=== PATIENT | female | born 1980 | race Caucasian/White ===

== ENCOUNTER 2018-10-30 20:57 | Emergency (ER) | payer MEDICAID ==
[~2018-10-30] VITALS: Ht 165.1 cm; Wt 57.2 kg
[2018-10-30 21:18] VITALS: BP 116/72
--- NOTE | 2018-10-30 21:29 | Emergency Room Report ---
History of Present Illness General Chief Complaint: Earache Source: Patient Present Illness HPI 38-year-old female presents with right earache x3 days, no fever no chills, patient endorses congestion, no aggravating relieving factors, severity is mild and constant. Allergies: Coded Allergies: No Known Allergies (Unverified , 10/30/18) Patient History Past Medical History: see triage record Now: No Reviewed Nursing Documentation: PMH: Agreed; PSxH: Agreed Nursing Documentation-PMH Past Medical History: No Stated History Review of Systems All Other Systems: negative except mentioned in HPI Physical Exam Vital Signs Date Time Temp Pulse Resp B/P (MAP) Pulse Ox O2 Delivery O2 Flow Rate FiO2 10/30/18 21:16 98.4 69 18 116/72 (87) 97 Room Air Sp02 EP Interpretation: reviewed, normal General Appearance: well appearing, no apparent distress, alert Head: normocephalic, atraumatic Eyes: bilateral eye PERRL, bilateral eye EOMI ENT: uvula midline, moist mucus membranes, nasal congestion, other - Right ear effusion, left ear normal Neck: supple, thyroid normal, supple/symm/no masses Respiratory: lungs clear, no respiratory distress, no retraction, no accessory muscle use Cardiovascular #1: normal peripheral pulses, regular rate, rhythm, no edema, no gallop, no murmur Gastrointestinal: non tender, soft, no guarding, no rebound Musculoskeletal: normal inspection Neurologic: alert, oriented x3 Psychiatric: mood/affect normal Skin: no rash, warm/dry Medical Decision Making Diagnostic Impression: Primary Impression: Otitis media Qualified Codes: H66.001 - Acute suppurative otitis media without spontaneous rupture of ear drum, right ear ER Course Patient with right ear infection, will provide patient with antibiotic disposition home with return precautions Last Vital Signs Date Time Temp Pulse Resp B/P (MAP) Pulse Ox O2 Delivery O2 Flow Rate FiO2 10/30/18 21:16 98.4 69 18 116/72 (87) 97 Room Air Disposition: HOME, SELF-CARE Condition: Stable Scripts Amoxicillin (AMOXICILLIN) 875 Mg Tablet 875 MG PO Q12H for 7 Days, #14 TAB 0 Refills Prov: Michael Stinson MD 10/30/18 Referrals: [facility] Patient Instructions: Otitis Media, Adult, [id number] Additional Instructions: The patient was provided with discharge instructions, notified to follow-up with a primary care doctor and or specialist in the next 24-48 hours, and to return to the ED if they have worsening of their symptoms. Please note that this report is being documented using [employer] technology. This can lead to erroneous entry secondary to incorrect interpretation by the dictating instrument. Michael Stinson MD Oct 30, 2018 21:29
[2018-10-30] MEDS ORDERED: AMOXICILLIN875 MG PO (21:34)
[2018-10-30 21:36] VITALS: BP 118/80
--- NOTE | 2018-10-30 21:36 | NUR ---
ED Nurse Note: pt cleared to be d/c per ERMD, pt discharge and aftercare instruction provided w/ prescription, pt education done via discussion and hand out, pt advised to follow up with pcp or return to ed if changes in condition, vss, ambulatory w/ steady gait.
== END 2018-10-30 21:46 | disposition home or self-care (01) ==
LOC: EMR 21:25
DX: H66.001 Acute suppurative otitis media without spontaneous rupture of ear drum, right ear (principal)
CPT/HCPCS: 99282

== ENCOUNTER 2018-12-07 15:12 | Emergency (ER) | payer MEDICAID ==
[~2018-12-07] VITALS: Ht 165.1 cm; Wt 57.6 kg
[~2018-12-07 15:12] MED LIST: AMOXICILLIN875 MG PO
--- NOTE | 2018-12-07 15:32 | NUR ---
ED Nurse Note: Pt came in from home due to R sided headache, dizziness, confusion x 3 days. Pt described "waking up do not know what to do or confused of her situation". Denies drug use or alcohol use. Pain is 7/10 upon arrival. Pt has hx of Anemia, suspctect symptoms to be the result of Anemia. AOOx4, vital signs stable at this time. Will cont to monitor.
[2018-12-07 15:44] VITALS: BP 111/80
[2018-12-07] MEDS ORDERED: Acetaminophen 500mg (ES) tab ORAL ONE (15:45)
[2018-12-07] MEDS ORDERED: Omnipaue 350mg/ml 100ml vial INJ PRN (15:45)
[2018-12-07] MEDS ORDERED: DiphenhydrAMINE 50mg/ml Inj IVP ONE (15:45)
[2018-12-07] MEDS ORDERED: Metoclopramide 10mg/2ml Inj IVP ONE (15:45)
--- NOTE | 2018-12-07 15:46 | Emergency Room Report ---
History of Present Illness General Chief Complaint: Headache Source: Patient Present Illness HPI Disclaimer: Please note that this report is being documented using [employer] technology. This can lead to erroneous entry secondary to incorrect interpretation by the dictating instrument. HPI: 38-year-old female presents for evaluation of fatigue, headaches, syncope. Patient that she has had a near constant headache for approximately 1 month it is getting worse over the past week. She was seen in the emergency department had a negative noncontrast CT scan approximately 1 month ago. She states she has been feeling progressively weak noting exertional dyspnea, decreased exercise tolerance over the past few weeks and had 2 episodes of syncope, both without head injury. She has a history of iron deficiency anemia and is no longer taking supplementation for approximately 1 year. She also has a family history of some sort of vascular malformations in the brain with multiple family members having aneurysm and bleed in the past. She notes blurred vision, global weakness, difficulty concentrating but denies ataxia, vertiginous symptoms, tinnitus, ear pain, neck stiffness, fever, chills, sore throat, chest pain, shortness of breath, abdominal pain, vomiting, diarrhea. PMH: Iron deficiency anemia PSH: None Allergies: None Social Hx: Denies tobacco, alcohol or drug use Allergies: Coded Allergies: No Known Allergies (Unverified , 10/30/18) Patient History Last Menstrual Period: 10/2018 Nursing Documentation-PM Past Medical History: No History, Except For Review of Systems All Other Systems: negative except mentioned in HPI Physical Exam Vital Signs Date Time Temp Pulse Resp B/P (MAP) Pulse Ox O2 Delivery O2 Flow Rate FiO2 12/07/18 15:24 98.1 86 18 119/79 (92) 96 Room Air General: Awake and alert, no acute distress HEENT: NC/AT. EOMI. PERRLA. Visual moya are full. No nystagmus. Facial expressions are symmetrical. No facial droop. Cardiovascular: RRR. S1 and S2 normal. No murmur appreciated Resp: Normal work of breathing. No cough, wheezing or crackles appreciated Abdomen: Abdomen is soft, nondistended. Nontender Skin: Intact. No abrasions, laceration or rash over the exposed skin MSK: Normal tone and bulk. Moving all extremities. No obvious deformity. There is no drift in the upper or lower extremities bilaterally. Neuro: Awake and alert. Mentating appropriately. Facial expression symmetrical. No dysarthria, no ataxia on [id number] testing. Sensation to light touch is intact over the upper and lower extremities. The patient has intact speech with good repetition, comprehension. Fund of knowledge is full. No aphasia, no neglect. Medical Decision Making Diagnostic Impression: Primary Impression: Headache Additional Impressions: Syncope Iron deficiency anemia UTI (urinary tract infection) ER Course Is a 38-year-old female who presents for evaluation of 1 month headache, syncope , weakness. Physical exam is reassuring and finds no focal deficits however the patient's family history of intracranial aneurysm and malformations is concerning. Will obtain a CTA of the head, labs to evaluate for anemia including iron panel, give IV fluids and a migraine cocktail. Laboratory Tests Test 12/07/18 15:33 12/07/18 15:35 White Blood Count 7.1 K/UL (4.8-10.8) Red Blood Count 3.99 M/UL (4.20-5.40) L Hemoglobin 11.5 G/DL (12.0-16.0) L Hematocrit 35.1 % (37.0-47.0) L Mean Corpuscular Volume 88 FL (80-99) Mean Corpuscular Hemoglobin 28.7 PG (27.0-31.0) Mean Corpuscular Hemoglobin Concent 32.6 G/DL (32.0-36.0) Red Cell Distribution Width 13.9 % (11.6-14.8) Platelet Count 233 K/UL (150-450) Mean Platelet Volume 6.4 FL (6.5-10.1) L Neutrophils (%) (Auto) 57.8 % (45.0-75.0) Lymphocytes (%) (Auto) 30.2 % (20.0-45.0) Monocytes (%) (Auto) 10.3 % (1.0-10.0) H Eosinophils (%) (Auto) 1.1 % (0.0-3.0) Basophils (%) (Auto) 0.6 % (0.0-2.0) Sodium Level 138 MMOL/L (136-145) Potassium Level 3.7 MMOL/L (3.5-5.1) Chloride Level 103 MMOL/L (98-107) Carbon Dioxide Level 27 MMOL/L (21-32) Anion Gap 8 mmol/L (5-15) Blood Urea Nitrogen 7 mg/dL (7-18) Creatinine 0.8 MG/DL (0.55-1.30) Estimate Glomerular Filtration Rate > 60 mL/min (>60) Glucose Level 102 MG/DL (74-106) Calcium Level 9.4 MG/DL (8.5-10.1) Phosphorus Level 3.0 MG/DL (2.5-4.9) Magnesium Level 1.9 MG/DL (1.8-2.4) Iron Level 25 ug/dL (50-175) L Total Iron Binding Capacity 321 ug/dL (250-450) Percent Iron Saturation 8 % (15-50) L Unsaturated Iron Binding 296 ug/dL (112-346) Total Bilirubin 0.3 MG/DL (0.2-1.0) Aspartate Amino Transferase (AST) 15 U/L (15-37) Alanine Aminotransferase (ALT) 18 U/L (12-78) Alkaline Phosphatase 38 U/L (46-116) L Troponin I 0.000 ng/mL (0.000-0.056) Total Protein 7.7 G/DL (6.4-8.2) Albumin 3.9 G/DL (3.4-5.0) Globulin 3.8 g/dL Albumin/Globulin Ratio 1.0 (1.0-2.7) Urine Color Pale yellow Urine Appearance Clear Urine pH 5 (4.5-8.0) Urine Specific [place] 1.015 (1.005-1.035) Urine Protein Negative (NEGATIVE) Urine Glucose (UA) Negative (NEGATIVE) Urine Ketones Negative (NEGATIVE) Urine Blood 1+ (NEGATIVE) H Urine Nitrite Negative (NEGATIVE) Urine Bilirubin Negative (NEGATIVE) Urine Urobilinogen Normal MG/DL (0.0-1.0) Urine Leukocyte Esterase 2+ (NEGATIVE) H Urine RBC 0-2 /HPF (0 - 2) Urine WBC 10-15 /HPF (0 - 2) H Urine Squamous Epithelial Cells Many /LPF (NONE/OCC) H Urine Bacteria Few /HPF (NONE) Urine HCG, Qualitative Negative (NEGATIVE) EKG Diagnostic Results EKG Time: 16:03 Rate: normal Rhythm: NSR ST Segments: no acute changes Other Impression Sinus rhythm, normal axis, normal intervals, no ST segment changes. Rhythm Strip Diag. Results Rhythm Strip Time: 16:03 EP Interpretation: yes Rate: 70s Rhythm: NSR, no PVC's, no ectopy CT/MRI/US Diagnostic Results CT/MRI/US Diagnostic Results : Impression Preliminary Findings Only See Final Report For Complete Findings MRA HEAD Without Contrast: No significant stenosis, occlusion, or aneurysm. Radiologist: Meaghan White M.D. Study ready at 17:45 and initial results transmitted at 18:44 Reevaluation Time: 19:07 Last Vital Signs Date Time Temp Pulse Resp B/P (MAP) Pulse Ox O2 Delivery O2 Flow Rate FiO2 12/07/18 15:24 98.1 86 18 119/79 (92) 96 Room Air Reevaluation Impression MRI is negative for aneurysm bleed or mass. Will treat for UTI. We will prescribe her iron supplements. Patient states she had significant improvement in her headache after receiving the Reglan and Benadryl. We will give a short course of Reglan and use at home and consult her on the possible side effects and to take Benadryl along with it. She is instructed not to drive or operate any heavy machinery while under the influence of Benadryl. Follow-up with clinic and for referral to neurology. Discussed reasons to return to the emergency department. She understands and agrees with this treatment plan will be discharged home. Disposition: HOME, SELF-CARE Condition: Stable Scripts Metoclopramide Hcl* (REGLAN*) 10 Mg Tablet 10 MG ORAL THREE TIMES A DAY for 3 Days, #10 TAB Prov: Marko Fletcher MD 12/07/18 Cephalexin* (KEFLEX*) 500 Mg Capsule 500 MG ORAL EVERY 12 HOURS for 7 Days, #14 CAP 0 Refills Prov: Marko Fletcher MD 12/07/18 Diphenhydramine Hcl (BENADRYL ALLERGY) 25 Mg Tablet 25 MG PO TID for 7 Days, #20 TAB Prov: Marko Fletcher MD 12/07/18 Ibuprofen* (MOTRIN*) 600 Mg Tablet 600 MG ORAL Q8H PRN for For Pain, #30 TAB 0 Refills Prov: Marko Fletcher MD 12/07/18 Iron,Carbonyl/Vit C/Vit B12/Fa (IRON 100 PLUS TABLET) 1 Each Tablet 1 EACH PO DAILY for 30 Days, #30 TAB Prov: Marko Fletcher MD 12/07/18 Marko Fletcher MD Dec 07, 2018 15:46
[2018-12-07 15:51] LABS: BASOPHILS % (AUTO) 0.6 % (0.0-2.0); EOSINOPHILS % (AUTO) 1.1 % (0.0-3.0); HEMATOCRIT 35.1 % (37.0-47.0); HEMOGLOBIN 11.5 G/DL (12.0-16.0); LYMPHOCYTES % (AUTO) 30.2 % (20.0-45.0); MEAN CORPUSCULAR VOLUME 88 FL (80-99); MONOCYTES % (AUTO) 10.3 % (1.0-10.0); NEUTROPHILS % (AUTO) 57.8 % (45.0-75.0); PLATELET COUNT 233 K/UL (150-450); RED BLOOD COUNT 3.99 M/UL (4.20-5.40); RED CELL DISTRIBUTION WIDTH 13.9 % (11.6-14.8); WHITE BLOOD COUNT 7.1 K/UL (4.8-10.8)
[2018-12-07 16:05] LABS: ANION GAP 8 mmol/L (5-15); BLOOD UREA NITROGEN 7 mg/dL (7-18); CALCIUM 9.4 MG/DL (8.5-10.1); CARBON DIOXIDE 27 MMOL/L (21-32); CHLORIDE 103 MMOL/L (98-107); CREATININE 0.8 MG/DL (0.55-1.30); POTASSIUM 3.7 MMOL/L (3.5-5.1); SODIUM 138 MMOL/L (136-145)
[2018-12-07 16:10] LABS: % IRON SATURATION 8 % (15-50); ALANINE AMINOTRANSFERASE 18 U/L (12-78); ALBUMIN 3.9 G/DL (3.4-5.0); ALKALINE PHOSPHATASE 38 U/L (46-116); ASPARTATE AMINO TRANSFERASE 15 U/L (15-37); BILIRUBIN,TOTAL 0.3 MG/DL (0.2-1.0); IRON 25 ug/dL (50-175); TOTAL IRON BINDING CAPACITY 321 ug/dL (250-450)
[2018-12-07] MEDS ORDERED: Gadavist 7.5mMol/7.5ml vial IV PRN (16:15)
[2018-12-07 16:29] LABS: APPEARANCE,URINE CLEAR; BILIRUBIN, URINE NEGATIVE (NEGATIVE); COLOR,URINE PALE YELLOW; GLUCOSE, URINE (UA) NEGATIVE (NEGATIVE); KETONES,URINE NEGATIVE (NEGATIVE); LEUKOCYTE ESTERASE ,URINE 2+ (NEGATIVE); NITRITE,URINE NEGATIVE (NEGATIVE); PH,URINE 5 (4.5-8.0); PROTEIN,URINE NEGATIVE (NEGATIVE); UROBILINOGEN,URINE NORMAL MG/DL (0.0-1.0)
--- NOTE | 2018-12-07 16:36 | NUR ---
ED Nurse Note: Pt states headache is 4/10 at this time, dizziness relieved. No adverse reactions noted or reported.
--- NOTE | 2018-12-07 16:39 | NUR ---
ED Nurse Note: fleet technician called and notified that pt will be tranferred in 20 mins.
[2018-12-07 17:46] VITALS: BP 120/78
--- NOTE | 2018-12-07 18:45 | Diagnostic Imaging Report ---
Indication: Headache. Syncope. Technique: 3-D [id number] of the brain Comparison: None Findings: No significant stenosis, vascular malformation, or aneurysm is identified. Flow-related enhancement of the major intracranial arteries demonstrated including the anterior, middle, and posterior cerebral arteries. Impression: Negative MRA of the brain
[2018-12-07 18:51] VITALS: BP 124/70
--- NOTE | 2018-12-07 18:51 | NUR ---
ED Nurse Note: Pt ambulated to the bathroom with steady gait independently. Vital signs stable at this time. No sign of aucte distress.
[2018-12-07 19:01] VITALS: BP 124/70
--- NOTE | 2018-12-07 19:01 | NUR ---
ER DISCHARGE NOTE: Patient is cleared to be discharged per ERMD, pt is aox4, on room air, with stable vital signs. pt was given dc and prescription instructions, pt was able to verbalize understanding, pt id band and iv site removed without complications. pt is able to ambulate with steady gait. pt took all belongings.
[2018-12-07] MEDS ORDERED: CEPHALEXIN500 MG ORAL (19:06)
[2018-12-07] MEDS ORDERED: BENADRYL ALLERG25 M1 PO (19:06)
[2018-12-07] MEDS ORDERED: IRON 100 PLUS1 EACH PO (19:06)
[2018-12-07] MEDS ORDERED: IBUPROFEN600 MG ORAL (19:06)
[2018-12-07] MEDS ORDERED: REGLAN10 MG ORAL (19:06)
--- NOTE | 2018-12-10 15:33 | Cardiology Report ---
APPROVED REPORT EKG Measurement Heart [id number] Normal sinus rhythm Normal ECG
== END 2018-12-07 19:01 | disposition home or self-care (01) ==
LOC: EMR 15:25
DX: R51 Headache (principal); R55 Syncope and collapse; N39.0 Urinary tract infection, site not specified; D50.9 Iron deficiency anemia, unspecified
CPT/HCPCS: 36415; 70544; 80053; 81003; 81025; 83540; 83550; 83735; 84100; 84484; 85025; 87086; 93005; 96361; 96374; 96375; J1200; J2765; Z7502; 99284